=== PATIENT | female | born 1980 | race Caucasian/White ===

== ENCOUNTER 2023-05-21 23:45 | Outpatient (CLI) | payer BC, SELFPAY | END 2023-05-21 23:46 | disposition home or self-care (01) | LOC: AMB 05-26 14:20 | PROVIDERS: Visit Provider Family Medicine | DX: N93.9 Abnormal uterine and vaginal bleeding, unspecified (principal); R42 Dizziness and giddiness | CPT/HCPCS: A0425; A0427 ==

== ENCOUNTER 2024-12-04 18:07 | Outpatient (CLI) | payer BC, SELFPAY | END 2024-12-04 18:08 | disposition home or self-care (01) | LOC: AMB 12-05 10:09 | PROVIDERS: Visit Provider Student in an Organized Health Care Education/Training Program | DX: R42 Dizziness and giddiness (principal); R53.1 Weakness | CPT/HCPCS: A0425; A0427 ==